=== PATIENT | female | born 1975 | race Caucasian/White ===

== ENCOUNTER 2017-02-14 02:21 | Emergency (ER) | payer OTHER ==
[~2017-02-14] VITALS: Ht 147.3 cm; Wt 39.6 kg
[~2017-02-14 02:21] MED LIST: BACT800T5 PO; CEPH500C3 PO
[2017-02-14 02:25] VITALS: BP 123/81; PULSE 90; RESP 20; TEMP 97.5; O2SAT 100
--- NOTE | 2017-02-14 03:23 | PD ---
HPI Chief Complaint: Headache Time Seen by Provider: 03:16 Travel History International Travel<30 days: No Contact w/Intl Traveler<30days: No Traveled to known affect area: No History of Present Illness HPI 41 year-old female presents to the emergency department for 2-3 days of headache with prior history of migraine. Patient also concerned about sinus infection. No fever chills. Nausea no vomiting. Photophobia and photophobia. Patient denies any upper extremity or lower extremity numbness tingling or weakness or ataxia gait. No change in speech and confusion. Patient states [id number] medications and provided no relief. Patient's had history of migraine reportedly since teenage years. No family members with migraines. Headache is not sudden onset thunderclap or worst ever. Patient does not duration is longer. Patient states headache began as sinus pressure frontal and midline. Patient has had no yellow green sinus drainage. Patient has not used any antihistamine or decongestant medications. PFSH Past Medical History Narrative Medical Anxiety migraines hysterectomy tobacco use alcohol use; nursing notes reviewed Anxiety: Yes Headaches: Yes Migraines: Yes Tetanus Vaccination: > 5 Years Influenza Vaccination: No ?: Not : 2 Para: 2 Dilation and Curettage (D&C): Yes Tubal Ligation: Yes Past Surgical History Gynecologic Surgery: Yes (HYSTERECTOMY AND TUBAL LIGATION) Hysterectomy: Yes Other Surgery: Yes Social History Alcohol Use: Yes (occ.) Tobacco Use: Yes (1 PPD) Substance Use: No Allergies-Medications (Allergen,Severity, Reaction): Coded Allergies: Percocet (Verified Allergy, Intermediate, 02/14/17) Lortab (Verified Adverse Reaction, Mild, Nausea/Vomiting, 02/14/17) Reported Meds & Prescriptions Reported Meds & Active Scripts Active No Active Prescriptions or Reported Medications Review of Systems Except as stated in HPI: all other systems reviewed are Neg General / Constitutional: No: Fever, Chills Eyes: Positive: Photophobia, No: Diploplia, Blurred Vision HENT: Positive: Headaches, Lightheadedness, Congestion, No: Neck Stiffness Cardiovascular: No: Chest Pain or Discomfort Respiratory: No: Shortness of Breath Gastrointestinal: Positive: Nausea, No: Abdominal Pain Genitourinary: No: Dysuria Musculoskeletal: No: Myalgias, Arthralgias Skin: No Rash Neurologic: Positive: Headache, No: Weakness, Dizziness, Syncope, Focal Abnormalities, Coordination Problem, Ataxia, Change in Mentation, Slurred Speech , Paresthesia, Seizures Psychiatric: No: Anxiety Hematologic/Lymphatic: No: Lymph Node Enlargement Physical Exam Narrative GENERAL: Well-developed well-nourished female in no acute distress no respiratory distress SKIN: Warm and dry. HEAD: Atraumatic. Normocephalic. EYES: Pupils equal and round. No scleral icterus. No injection or drainage. ENT: No nasal bleeding or discharge. Mucous membranes pink and moist. NECK: Trachea midline. No JVD. No meningismus no nuchal rigidity. CARDIOVASCULAR: Regular rate and rhythm. RESPIRATORY: No accessory muscle use. Clear to auscultation. Breath sounds equal bilaterally. GASTROINTESTINAL: Abdomen soft, non-tender, nondistended. Hepatic and splenic margins not palpable. MUSCULOSKELETAL: Extremities without clubbing, cyanosis, or edema. No obvious deformities. NEUROLOGICAL: Awake and alert. No obvious cranial nerve deficits. Motor grossly within normal limits. Five out of 5 muscle strength in the arms and legs. Normal speech. PSYCHIATRIC: Appropriate mood and affect; insight and judgment normal. Data Data Last Documented VS Vital Signs Date Time Temp Pulse Resp B/P Pulse Ox O2 Delivery O2 Flow Rate FiO2 02/14/17 04:53 86 16 113/65 100 Room Air 02/14/17 02:[address] Brain W/O Iv Contrast(Rout) (02/14/17 03:20) Ecg Monitoring (02/14/17 03:20) Iv Access Insert/Monitor (02/14/17 03:20) Oximetry (02/14/17 03:20) Sodium Chloride 0.9% Flush (Ns Flush) (02/14/17 03:30) Ketorolac Inj (Toradol Inj) (02/14/17 03:30) Ondansetron Inj (Zofran Inj) (02/14/17 03:30) Prochlorperazine Inj (Compazine Inj) (02/14/17 04:45) Diphenhydramine Inj (Benadryl Inj) (02/14/17 04:45) Sodium Chlor 0.9% 1000 Ml Inj (Ns 1000 M (02/14/17 04:45) MDM Medical Decision Making Medical Screen Exam Complete: Yes Emergency Medical Condition: Yes Medical Record Reviewed: Yes Interpretation(s) Last Impressions Head CT 02/14/17 0320 Signed Impressions: Service Date/Time: Tuesday, February 14, 2017 03:52 - CONCLUSION: Normal examination. Kanu Rowland MD Differential Diagnosis Recurrent cephalgia, migraine, tension headache, sinusitis, ICH Narrative Course Patient administered Toradol 30 mg IV and Zofran [address] imaging shows no acute abnormalities; patient continues to complain of pain administered normal saline 1 L bolus along with Compazine 5 mg IV and Benadryl 25 mg IV It is now 5:50 AM patient feels clinically improved desirous of being discharged to home is aware of imaging results. Patient be given prescription for Zofran. Diagnosis Primary Impression: Cephalgia Qualified Code: R51 - Nonintractable headache, unspecified chronicity pattern , unspecified headache type Additional Impression: H/O migraine Referrals: Primary Care Physician 2 days Patient Instructions: General Instructions Additional Instructions: Increase fluid hydration Follow-up with primary care provider May use [id number] Afrin nasal decongestant spray per package instructions as needed May use Flonase per package directions Takes Zofran as prescribed as needed for nausea and/or vomiting Take acetaminophen/Tylenol as needed for fever 100.4F or greater Take ibuprofen 400 mg every 6 hours as needed for pain associated with inflammation or for fever 100.4F or greater Return to the emergency department for recurrent symptoms fever vomiting or any concerns Follow-up with primary care provider call office in a.m. to schedule follow-up appointment Med/Other Pt SpecificInfo: Prescription(s) given Scripts Ondansetron Odt (Zofran Odt)4 Mg Tab4 Mg SL Q6HR PRN (Nausea/Vomiting) #10 TAB Ref 0 Prov:Angelita Burden MD 02/14/17 Disposition: 01 DISCHARGE HOME Condition: Stable Angelita Burden MD Feb 14, 2017 03:23
[2017-02-14] MEDS ORDERED: ONDANSETRON HCL 4 MG/2 ML VIAL IVP ONE (03:30)
[2017-02-14] MEDS ORDERED: SODIUM CHLORIDE 0.9% FLUSH 10 ML FLUSH IVF PRN (03:30)
[2017-02-14] MEDS ORDERED: KETOROLAC TROMETHAMINE 30 MG/ML (IVP) VIAL IVP ONE (03:30)
[2017-02-14 04:15] VITALS: BP 119/74; PULSE 75; RESP 16; O2SAT 98
--- NOTE | 2017-02-14 04:23 | RADRPT ---
EXAM DATE/TIME: 02/14/2017 03:52 [facility] COMPARISON: No previous studies available for comparison. INDICATIONS : Cephalgia. RADIATION DOSE: 63.00 CTDIvol (mGy) MEDICAL HISTORY : None SURGICAL HISTORY : None. ENCOUNTER: Initial ACUITY: 3 days PAIN SCALE: 9/10 LOCATION: Bilateral cranial TECHNIQUE: Multiple contiguous axial images were obtained of the head. Using automated exposure control and adj ustment of the mA and/or kV according to patient size, radiation dose was kept as low as reasonably a chievable to obtain optimal diagnostic quality images. DICOM format image data is available electro nically for review and comparison. FINDINGS: CEREBRUM: The ventricles are normal for age. No evidence of midline shift, mass lesion, hemorrhage or acute in farction. No extra-axial fluid collections are seen. POSTERIOR FOSSA: The cerebellum and brainstem are intact. The 4th ventricle is midline. The cerebellopontine angle i s unremarkable. EXTRACRANIAL: The visualized portion of the orbits is intact. SKULL: The calvaria is intact. No evidence of skull fracture. CONCLUSION: Normal examination. Kanu Rowland MD on February 14, 2017 at 4:21 Board Certified Radiologist. This report was verified electronically.
[2017-02-14] MEDS ORDERED: PROCHLORPERAZINE INJ 10 MG/2 ML VIAL IV PUSH ONE (04:45)
[2017-02-14] MEDS ORDERED: diphenhydrAMINE HCL 50 MG/ML VIAL IV PUSH ONE (04:45)
[2017-02-14] MEDS ORDERED: SODIUM CHLOR 0.9% 1000 ML INJ 1,000 ML IV ONE (04:45)
[2017-02-14 04:53] VITALS: BP 113/65; PULSE 86; RESP 16; O2SAT 100
[2017-02-14] MEDS ORDERED: ZOFR4TAB3 SL (05:51)
== END 2017-02-14 06:01 | disposition home or self-care (01) ==
LOC: PHED 02:21
DX: R51 Headache (principal); F17.210 Nicotine dependence, cigarettes, uncomplicated
CPT/HCPCS: 70450; 96361; 96374; 96375; 99285; J0780; J1200; J1885; J2405; J7030